=== PATIENT | male | born 1995 | race African-American/Black ===

== ENCOUNTER 2016-11-29 23:40 | Emergency (ER) | payer OTHER ==
[~2016-11-29] VITALS: Ht 167.6 cm; Wt 90.9 kg
[2016-11-30 01:19] VITALS: BP 138/74
== END 2016-11-30 01:23 | disposition home or self-care (01) ==
LOC: EMS 23:41
DX: S39.94XA Unspecified injury of external genitals, initial encounter (principal); X58.XXXA Exposure to other specified factors, initial encounter; Y93.89 Activity, other specified; Y92.89 Other specified places as the place of occurrence of the external cause; Y99.8 Other external cause status
CPT/HCPCS: 99281

== ENCOUNTER 2018-09-18 21:24 | Emergency (ER) | payer OTHER ==
[~2018-09-18] VITALS: Ht 177.8 cm; Wt 140.0 kg
[2018-09-18] MEDS ORDERED: LISI-660 PO (21:38)
[2018-09-18 22:44] LABS: APPEARANCE,URINE CLOUDY (CLEAR); BILIRUBIN,URINE NEGATIVE (NEGATIVE); GLUCOSE, URINE (UA) NEGATIVE (NEGATIVE); KETONES,URINE NEGATIVE (NEGATIVE); LEUKOCYTE ESTERASE ,URINE NEGATIVE (NEGATIVE); NITRATE,URINE NEGATIVE (NEGATIVE); OCCULT BLOOD,URINE NEGATIVE (NEGATIVE); PH,URINE 7.5 (5.0-8.0); PROTEIN,URINE NEGATIVE (NEGATIVE)
[2018-09-18 22:54] LABS: AMORPHOUS SEDIMENT,UR Moderate /LPF (None Seen); BACTERIA,URINE Rare /HPF (None Seen); RBC,URINE 0-2 /HPF (0-2); SQUAMOUS EPITHELIAL CELL,UR Rare /LPF (None Seen); WBC,URINE 0-2 /HPF (0-5)
[2018-09-19 01:30] VITALS: BP 144/79
== END 2018-09-19 01:36 | disposition home or self-care (01) ==
LOC: EMS 21:25
DX: I86.1 Scrotal varices (principal); I10 Essential (primary) hypertension
CPT/HCPCS: 76870